=== PATIENT | female | born 1985 | race Caucasian/White ===

== ENCOUNTER 2017-01-13 10:44 | Inpatient (IN) | payer MEDICAID ==
[~2017-01-13] VITALS: Ht 157.5 cm; Wt 61.3 kg
[2017-01-13] MEDS ORDERED: MISOPROSTOL 200 MCG TABLET ONE (10:59)
[2017-01-13] MEDS ORDERED: NEWBORN KIT ONE (10:59)
[2017-01-13] MEDS ORDERED: FENTANYL PF 100 MCG/2ML ONE (10:59)
[2017-01-13] MEDS ORDERED: LIDOCAINE 1%, 20ML ONE (10:59)
[2017-01-13] MEDS ORDERED: OXYTOCIN 30U/ 0.9% NaCL 500ML 500 ML ONE (10:59)
[2017-01-13] MEDS ORDERED: OXYTOCIN 30U/ 0.9% NaCL 500ML 500 ML IV ONE (11:03)
[2017-01-13] MEDS ORDERED: D5%-LACTATED RINGERS 1,000 ML IV SCH (11:03)
[2017-01-13] MEDS: LACTATED RINGERS 1,000 ML IV SCH ×2 (11:21→12:11)
[2017-01-13] MEDS ORDERED: ONDANSETRON 2MG/ML, 2ML ONE (11:26)
[2017-01-13] MEDS ORDERED: FENTANYL PF 100 MCG/2ML IVPush PRN (11:30)
[2017-01-13] MEDS ORDERED: ONDANSETRON 2MG/ML, 2ML IVPush PRN (11:30)
[2017-01-13] MEDS ORDERED: SODIUM CITRATE/CITRIC ACID 30 ML UDC PO PRN (11:30)
[2017-01-13] MEDS ORDERED: FENTANYL PF 100 MCG/2ML IV PRN (11:30)
[2017-01-13] MEDS ORDERED: TERBUTALINE 1 MG/ML, 1ML IVPush PRN (11:30)
[2017-01-13] MEDS ORDERED: METOCLOPRAMIDE 5 MG/ML, 2ML IVPush PRN (11:30)
[2017-01-13 11:39] VITALS: BP 115/87
[2017-01-13] MEDS ORDERED: LACTATED RINGERS 1,000 ML IV SCH (13:38)
[2017-01-13] MEDS ORDERED: FENTANYL/BUPIV./NS/PF 250 ML EPIDCONT SCH (13:38)
[2017-01-13] MEDS ORDERED: LACTATED RINGERS 1,000 ML IVBOLUS PRN (14:00)
[2017-01-13] MEDS: OXYTOCIN 30U/ 0.9% NaCL 500ML 500 ML IV SCH ×7 (15:28→22:38)
[2017-01-13] MEDS ORDERED: MISOPROSTOL 200 MCG TABLET PR PRN (15:30)
[2017-01-13] MEDS ORDERED: OXYcodone/APAP 5/325MG TABLET PO PRN (15:30)
[2017-01-13] MEDS ORDERED: ONDANSETRON 2MG/ML, 2ML IV PRN (15:30)
[2017-01-13] MEDS ORDERED: IBUPROFEN 600 MG TABLET ONE (17:22)
[2017-01-13] MEDS ORDERED: OXYcodone/APAP 5/325MG TABLET ONE (17:22)
[2017-01-13] MEDS: OXYcodone/APAP 5/325MG TABLET PO PRN ×2 (17:25→20:56)
[2017-01-13] MEDS: IBUPROFEN 600 MG TABLET PO PRN (17:25)
[2017-01-13 17:30] VITALS: BP 122/85
[2017-01-13 20:30] VITALS: BP 102/66
[2017-01-14] MEDS: OXYTOCIN 30U/ 0.9% NaCL 500ML 500 ML IV SCH ×7 (00:04→11:28)
[2017-01-14] MEDS: IBUPROFEN 600 MG TABLET PO PRN ×3 (01:14→12:25)
[2017-01-14] MEDS: OXYcodone/APAP 5/325MG TABLET PO PRN ×3 (01:14→12:25)
[2017-01-14 01:15] VITALS: BP 92/60
[2017-01-14 04:29] VITALS: BP 107/76
[2017-01-14] MEDS ORDERED: PRENATAL VIT/IRON/FA 1 EACH TABLET ONE (07:08)
[2017-01-14 07:22] VITALS: BP 112/76
[2017-01-14] MEDS ORDERED: PRENATAL VIT/IRON/FA 1 EACH TABLET PO SCH (09:00)
[2017-01-14] MEDS ORDERED: IBUP800T PO (10:04)
[2017-01-14] MEDS ORDERED: OXYC-302 PO (10:04)
== END 2017-01-14 15:30 | disposition home or self-care (01) | DRG 774 ==
LOC: LDOP 10:44 → LDIP 10:58 → 2NW 17:59
PROVIDERS: ADMIT Obstetrics & Gynecology; ATTEND Obstetrics & Gynecology
PROC: 10E0XZZ Delivery of Products of Conception, External Approach (ICD-10-PCS; principal; 2017-01-13)
PROC: 0KQM0ZZ Repair Perineum Muscle, Open Approach (ICD-10-PCS; 2017-01-13)
PROC: 00HU33Z Insertion of Infusion Device into Spinal Canal, Percutaneous Approach (ICD-10-PCS; 2017-01-13)
PROC: 3E0R3CZ (ICD-10-PCS; 2017-01-13)
DX: O77.0 Labor and delivery complicated by meconium in amniotic fluid (principal); O72.1 Other immediate postpartum hemorrhage; Z37.0 Single live birth; O76 Abnormality in fetal heart rate and rhythm complicating labor and delivery; O70.1 Second degree perineal laceration during delivery; Z3A.41 41 weeks gestation of pregnancy
CPT/HCPCS: 36415; 85025; 86850; 86900; J2405; J3010; J2590; J7120

== ENCOUNTER 2017-02-09 09:28 | Emergency (ER) | payer MEDICAID ==
[~2017-02-09] VITALS: Ht 157.5 cm; Wt 53.0 kg
[~2017-02-09 09:28] MED LIST: IBUP-1223 PO; OXYC-302 PO
[2017-02-09 10:04] LABS: PATH.CAST-FLAG NOT PRESENT; SPERM-FLAG NOT PRESENT; SRC-FLAG NOT PRESENT; XTAL-FLAG NOT PRESENT; YLC-FLAG NOT PRESENT
[2017-02-09] MEDS ORDERED: ONDANSETRON 2MG/ML, 2ML ONE (10:15)
[2017-02-09] MEDS ORDERED: MORPHINE SULFATE 4 MG/ML, 1ML ONE ×2 (10:15→12:13)
[2017-02-09] MEDS: MORPHINE SULFATE 4 MG/ML, 1ML IVPush PRN ×2 (10:18→12:18)
[2017-02-09 10:28] LABS: HEMATOCRIT 43.2 % (34.6-47.8); HEMOGLOBIN 14.4 g/dL (11.7-16.4); WHITE BLOOD COUNT 7.1 x10^3/uL (3.4-10)
[2017-02-09] MEDS ORDERED: SODIUM CHLORIDE FLUSH 10ML SYR IVF ONE (10:30)
[2017-02-09] MEDS ORDERED: ONDANSETRON 2MG/ML, 2ML IVPush ONE (10:30)
[2017-02-09] MEDS ORDERED: SODIUM CHLORIDE 0.9% 1,000ML IVBOLUS ONE (10:30)
[2017-02-09 10:37] LABS: ASPARTATE AMINO TRANSFERASE 20 U/L (15-37); BLOOD UREA NITROGEN 11 mg/dL (7-18)
[2017-02-09 13:05] VITALS: BP 122/73
== END 2017-02-09 13:07 | disposition home or self-care (01) ==
LOC: ED 10:11
DX: R10.32 Left lower quadrant pain (principal)
CPT/HCPCS: 36415; 76830; 80053; 81001; 84702; 85025; 87086; 96361; 96374; 96375; 96376; 99285; J2405; J7030

== ENCOUNTER 2017-03-26 09:28 | Emergency (ER) | payer MEDICAID ==
[~2017-03-26] VITALS: Ht 157.5 cm; Wt 53.9 kg
[2017-03-26 09:30] VITALS: BP 131/81
[2017-03-26 10:41] LABS: HCG UR LOT HCG7030192
[2017-03-26 10:52] LABS: PATH.CAST-FLAG NOT PRESENT; SPERM-FLAG NOT PRESENT; SRC-FLAG NOT PRESENT; XTAL-FLAG NOT PRESENT; YLC-FLAG NOT PRESENT
[2017-03-26 10:53] LABS: HCG UR OBC PASS
[2017-03-26] MEDS ORDERED: HYDROcodone/APAP 5/325 TABLET PO ONE (11:00)
[2017-03-26] MEDS ORDERED: HYDROcodone/APAP 5/325 TABLET ONE (11:01)
[2017-03-26 11:20] LABS: HEMATOCRIT 41.6 % (34.6-47.8); WHITE BLOOD COUNT 10.5 x10^3/uL (3.4-10)
[2017-03-26 11:22] LABS: BLOOD UREA NITROGEN 9 mg/dL (7-18)
== END 2017-03-26 13:15 ==
LOC: ED 10:34
DX: R10.32 Left lower quadrant pain (principal)
CPT/HCPCS: 36415; 76830; 80048; 81001; 81025; 82040; 85025; 99285